=== PATIENT | male | born 1985 | race Hispanic/Latino ===

== ENCOUNTER → 2018-07-14 | Day surgery (SDC) | payer BC ==
[~2018-07-14] MED LIST: BACTRIM DS TAB1 EACH PO; DEXAMETHASONE SOD PHOS INJ 4 MG/ML VIAL ONE; FENTANYL CITRATE/PF 100MCG/2 ML INJ ONE; LIDOCAINE HCL 2% LOCAL INJ 5 ML SDV VIAL INJ ONE; MIDAZOLAM HCL 2 MG/2 ML VIAL ONE; ONDANSETRON HCL INJ 2 MG/ML VIAL ONE; PROPOFOL IV EMULSION 10 MG/ML 20 ML VIAL ONE; SEVOFLURANE INHAL SOLN 250 ML PEN BTL ONE; TREMFYA INJ; VANCOMYCIN 500MG/NS 0.9% 100ML 100 ML IV SCH
[2018-07-14 12:31] LABS: BASOPHILS % 0.5 % (0.0-1.0); EOSINOPHILS # (AUTO) 0.1 (0.0-0.4); EOSINOPHILS % 1.3 % (0.0-6.0); HEMATOCRIT 43.9 % (38.2-49.6); HEMOGLOBIN 15.2 g/dL (14.0-18.0); LYMPHOCYTES # (AUTO) 1.9 (1.0-3.2); LYMPHOCYTES % 30.9 % (18.0-39.1); MEAN CORPUSCULAR HEMOGLOBIN 30.5 pg (28-32); MEAN CORPUSCULAR HGB CONC 34.6 g/dL (31-35); MEAN CORPUSCULAR VOLUME 88.2 fL (81-99); MONOCYTES # (AUTO) 0.5 (0.2-0.8); MONOCYTES % 7.8 % (4.4-11.3); NEUTROPHILS # (AUTO) 3.7 (2.1-6.9); NEUTROPHILS % 59.2 % (38.7-80.0); PLATELET COUNT 236 x10e3/uL (140-360); RED BLOOD COUNT 4.98 x10e6/uL (4.3-5.7); RED CELL DISTRIBUTION WIDTH 12.6 % (11.7-14.4)
[2018-07-14 12:41] LABS: INR 0.84; PROTHROMBIN TIME 12.3 seconds (11.9-14.5)
[2018-07-14 12:42] LABS: PARTIAL THROMBOPLASTIN TIME 38.5 seconds (23.8-35.5)
[2018-07-14 13:16] LABS: ALANINE AMINOTRANSFERASE 47 IU/L (0-55); ALBUMIN 4.1 g/dL (3.5-5.0); ALBUMIN/GLOBULIN RATIO 1.5 (0.8-2.0); ALKALINE PHOSPHATASE 52 IU/L (40-150); BLOOD UREA NITROGEN 16 mg/dL (7-26); BUN/CREATININE RATIO 18 (6-25); CALCIUM 9.3 mg/dL (8.4-10.2); CARBON DIOXIDE 19 mmol/L (22-29); CHLORIDE 108 mmol/L (98-107); CREATININE, SERUM 0.89 mg/dL (0.72-1.25); EST GLOMERULAR FILTRATION RATE > 60 ML/MIN (60-); GLUCOSE 90 mg/dL (74-118); SODIUM 140 mmol/L (136-145)
--- NOTE | 2018-07-14 14:03 | Diagnostic Imaging Report ---
EXAMINATION: CHEST 2 VIEWS INDICATION: \S\PRE-OP SCROTAL ABCESS \[id number] \S\[id number] COMPARISON: None FINDINGS: PA and lateral views TUBES and LINES: None. LUNGS: Lungs are well inflated. Lungs are clear. There is no evidence of pneumonia or pulmonary edema. PLEURA: No pleural effusion or pneumothorax. HEART AND MEDIASTINUM: The cardiomediastinal silhouette is unremarkable. BONES AND SOFT TISSUES: No acute osseous lesion. Soft tissues are unremarkable. UPPER ABDOMEN: No free air under the diaphragm. IMPRESSION: No acute thoracic abnormality. Signed by: Dr. Elana Lorenzo M.D. on 07/14/2018 2:00 PM
[2018-07-14 15:15] VITALS: BP 121/88
--- OUTSIDE RECORDS SUMMARY | 2018-07-18 13:26 | XMS REPORT | Clinical Summary ---
Author Author [facility] Organization [facility] Address Unknown Phone Unavailable Care Team Providers Care Slip Filler Name Role Phone Grant Luevano MD PCP Allergies No Known Allergies Current Medications Prescription Sig. Disp. Refills Start End Date Status Date TREMFYA 100 mg/mL syringe INJECT 100MG UNDER THE 7 11/17/19 Active SKIN AT WEEK 0, WEEK 4, 18 AND EVERY 8 WEEKS THEREAFTER ciprofloxacin (CIPRO) 500 TK 1 T PO BID 0 01/11/20 02/24/20 Discontin MG tablet 18 18 ued metroNIDAZOLE (FLAGYL) TK 1 T PO TID 0 01/11/20 02/24/20 Discontin 500 MG tablet 18 18 ued sodium,potassium,mag Please use as directed 354 mL 0 01/18/20 02/24/20 Discontin sulfates (SUPREP BOWEL 18 18 ued PREP KIT) 17.5-3.13-1.6 gram recon soln Active Problems Problem Noted Date Diverticulosis large intestine w/o perforation or abscess w/o bleeding 03/10/2018 Abnormal LFTs 12/01/2016 Psoriasis 12/01/2016 Morbid obesity (HCC) 12/01/2016 Encounters Date Type Specialty Care Team Description 03/10/2018 Office Visit Gastroenterology Eduardo Leyva MD Diverticulosis large intestine w/o perforation or abscess w/o bleeding (Primary Dx); Internal hemorrhoids 02/24/2018 Hospital Gastroenterology Eduardo Leyva MD Perforated diverticulum Encounter of large intestine 02/24/2018 Anesthesia Gastroenterology Sukhjinder Shannon MD Event 02/24/2018 Procedure Pass Gastroenterology 02/24/2018 Surgery Gastroenterology Eduardo Leyva MD COLONOSCOPY with bx 01/17/2018 Office Visit Gastroenterology Eduardo Leyva MD Diverticulitis of large intestine with perforation without abscess or bleeding (Primary Dx) 01/11/2018 Telephone Gastroenterology Nadia Corbin MA after 07/13/2017 Family History Medical History Relation Name Comments Hyperlipidemia Father Diabetes Mother Relation Name Status Comments Father Alive Mother Alive Social History Tobacco Use Types Packs/Day Years Used Date Current Some Day Smoker Cigarettes 0.25 Smokeless Tobacco: Never Used Alcohol Use Drinks/Week oz/Week Comments Yes Occ Sex Assigned at Date Recorded Not on file Last Filed Vital Signs Vital Sign Reading Time Taken Blood Pressure 132/91 03/10/2018 3:47 PM CDT Pulse 77 03/10/2018 3:47 PM CDT Temperature 36.8 C (98.3 F) 03/10/2018 3:47 PM CDT Respiratory Rate 20 02/24/2018 8:40 AM CDT Oxygen Saturation 97% 02/24/2018 8:40 AM CDT Inhaled Oxygen - - Concentration Weight 152 kg (335 lb) 03/10/2018 3:47 PM CDT Height 193 cm (6' 4") 03/10/2018 3:47 PM CDT Body Mass Index 40.78 03/10/2018 3:47 PM CDT Plan of Treatment Health Maintenance Due Date Last Done Comments INFLUENZA VACCINE 05/03/2018 Procedures Procedure Name Priority Date/Time Associated Diagnosis Comments SURGICAL PATHOLOGY Routine 02/24/2018 Results for this REQUEST 10:12 AM CDT procedure are in the results section. COLONOSCOPY 02/24/2018 Perforated diverticulum 7:30 AM CDT of large intestine after 07/13/2017 Results * Surgical pathology request (02/24/2018 10:12 AM) [facility] [place] DEPARTMENT OF PATHOLOGY AND GENOMIC MEDICINE Surgical pathology report See link below for PDF Lab [facility] DEPARTMENT OF Report PATHOLOGY AND GENOMIC MEDICINE Result status This is Final Report to [facility] DEPARTMENT OF [id number] PATHOLOGY AND GENOMIC MEDICINE Performing Organization Address City/State/Zipcode Phone Number [facility] DEPARTMENT OF [facility] [place] [address] PATHOLOGY AND GENOMIC MEDICINE after 07/13/2017 Insurance Payer Benefit Subscriber ID Type Phone Address Plan / Group BCBS BCBS xxxxxxxxxxxx PPO CHOICE PPO/[employer] [id number] PPO
--- NOTE | 2018-08-14 14:08 | Operative Report ---
DATE OF PROCEDURE: July 14, 2018 PREOPERATIVE DIAGNOSIS: Right scrotal abscess. POSTOPERATIVE DIAGNOSIS: Right scrotal abscess. OPERATION PERFORMED: Incision and drainage of scrotal abscess. ANESTHESIA: General. INDICATIONS: This patient is a 33-year-old male who was seen by me yesterday late in the afternoon because of a growing lesion in the right side of his scrotum that started draining a purulent material. Physical examination revealed a scrotal abscess. The patient did not have a fever at that time and although he has a family history of diabetes he personally denies having diabetes at this time. The patient started was started on Bactrim DS one p.o. twice daily and clindamycin 300 mg p.o. 4 times daily and he was scheduled today to have incision and drainage of scrotal abscess. For further details, please refer to the history and physical. The procedure was done in the following fashion: DESCRIPTION OF PROCEDURE: The patient was taken to the operating room. His blood sugar was 86 on a finger stick. He was placed under general anesthesia and prepped and draped with Hibiclens in lithotomy position in the usual fashion. Physical examination revealed that the testicles and epididymis were normal. However, there was a right-sided scrotal abscess that was about 5 cm x 5 cm in size. There was also some drainage coming out through the dependent portion of the abscess. The abscess was incised in the midline using the scalpel and most of the wound appeared to be phlegmonous and so I used a hemostat to break up the phlegmon. Wound cultures were obtained for aerobic and anaerobic and I took a little piece of tissue out from inflammatory mass there to send to the pathology department as a biopsy of the inflammatory scrotal mass. The wound was copiously irrigated with Betadine and sterile saline using a pulse evacuator and then the wound was packed with Iodoform strips. The patient tolerated the procedure well and left the operating room in good condition. Blood loss was minimal. My plan at this time is to have the patient continue his Bactrim and clindamycin at home. He is also being put in contact with wound care clinic for followup on care of his wound. He will have return appointment to see me again in 1 week. Job#: [id number]
== END | disposition home or self-care (01) ==
LOC: OR 11:58
PROVIDERS: ATTEND Urology
DX: N49.2 Inflammatory disorders of scrotum (principal); E66.9 Obesity, unspecified; L40.0 Psoriasis vulgaris; Z68.38 Body mass index [BMI] 38.0-38.9, adult; Z83.3 Family history of diabetes mellitus
CPT/HCPCS: 36415; 55100; 71046; 80053; 82948; 85025; 85610; 85730; 87071; 87075; 87186; 87205; 88304; 93005; J1100; J2001; J2250; J2405; J3370